=== PATIENT | female | born 1975 | race Caucasian/White ===

== ENCOUNTER 2021-12-13 06:15 | Day surgery (SDC) | payer BC, OTHER ==
[~2021-12-13 06:15] MED LIST: Lactated Ringers 1,000 ML IV SCH; Sodium Chloride 0.9% 10 ML Syringe FLUSH PRN
[2021-12-13] MEDS ORDERED: Propofol 200 MG/20 ML SDV IV ONE (06:16)
[2021-12-13] MEDS ORDERED: Lidocaine 1% PF 2 ML SDV INJECT ONE (06:16)
== END 2021-12-13 09:06 | disposition home or self-care (01) ==
LOC: FB.SDS 06:15
PROVIDERS: ATTEND Surgery
DX: Z12.11 Encounter for screening for malignant neoplasm of colon (principal); K63.89 Other specified diseases of intestine; Z86.010 Personal history of colon polyps; Z88.0 Allergy status to penicillin; Z79.899 Other long term (current) drug therapy; Z98.890 Other specified postprocedural states
CPT/HCPCS: 00812; 45378; J2704; J7120